=== PATIENT | male | born 1985 | race Caucasian/White ===

== ENCOUNTER 2020-02-02 21:39 | Emergency (ER) | payer OTHER ==
[~2020-02-02] VITALS: Ht 172.7 cm; Wt 120.2 kg
[~2020-02-02 21:39] MED LIST: ADDERALL 20 MG20 MG PO; BACTRIM DS TAB1 EACH PO; BACTROBAN CREAM30 GM TOP; DESYREL100 MG; HYDROXYZINE HCL25 M1 PO; IBUPROFEN 600600 M1 PO; KEFLEX500 MG PO; NAPROSYN500 MG PO; NOHOMEMEDICATIONS; PERMETHRIN60 GM TP; ULTRACET TABLE1 EACH PO
[2020-02-02 23:00] VITALS: BP 133/77
[2020-02-02 23:58] LABS: URINE BILIRUBIN NEGATIVE (Negative); URINE BLOOD NEGATIVE (Negative); URINE CLARITY CLEAR; URINE COLOR YELLOW; URINE GLUCOSE-RANDOM 3+ (Negative); URINE KETONES NEGATIVE (Negative); URINE LEUKOCYTES-REFLEX NEGATIVE (Negative); URINE NITRITE-REFLEX NEGATIVE (Negative); URINE PROTEIN NEGATIVE (Negative); URINE SPECIFIC GRAVITY 1.025 (1.005-1.030); URINE UROBILINOGEN 0.2 E.U./dl (0.2-1.0)
== END 2020-02-03 00:05 | disposition left against medical advice (07) ==
LOC: M.ERS 21:39
PROVIDERS: Emergency Medicine
DX: M79.671 Pain in right foot (principal); Z53.21 Procedure and treatment not carried out due to patient leaving prior to being seen by health care provider; W22.8XXA Striking against or struck by other objects, initial encounter; Y93.02 Activity, running; Y92.098 Other place in other non-institutional residence as the place of occurrence of the external cause; Y99.8 Other external cause status

== ENCOUNTER 2021-05-15 18:31 | Emergency (ER) | payer OTHER ==
[~2021-05-15] VITALS: Ht 175.3 cm; Wt 108.9 kg
[2021-05-15 22:21] VITALS: BP 139/90
== END 2021-05-15 22:23 | disposition home or self-care (01) ==
LOC: M.ERS 18:31
DX: S80.11XA Contusion of right lower leg, initial encounter (principal); Z20.822 Contact with and (suspected) exposure to COVID-19; F90.9 Attention-deficit hyperactivity disorder, unspecified type; F17.210 Nicotine dependence, cigarettes, uncomplicated; E66.01 Morbid (severe) obesity due to excess calories; V89.2XXA Person injured in unspecified motor-vehicle accident, traffic, initial encounter; Y93.89 Activity, other specified; Y92.89 Other specified places as the place of occurrence of the external cause; Y99.8 Other external cause status